=== PATIENT | male | born 1980 | race Caucasian/White ===

== ENCOUNTER 2020-02-08 12:02 | Day surgery (SDC) | payer BC ==
[~2020-02-08] VITALS: Ht 172.7 cm; Wt 104.5 kg
[2020-02-08] VITALS (7 sets, daily range): BP systolic 126–135; BP diastolic 61–94
[2020-02-08] MEDS ORDERED: LORazepam 0.5 MG tablet PO PRN (12:25)
[2020-02-08] MEDS ORDERED: diphenhydrAMINE 25mg capsule PO PRN (12:25)
[2020-02-08] MEDS ORDERED: normal saline 1,000 ML IV SCH (12:25)
[2020-02-08] MEDS ORDERED: heparin 1,000unit/ml 10ml vial 10 ML ONE (12:34)
[2020-02-08] MEDS ORDERED: fentaNYL/PF 50MCG/1 ML 2ML syringe ONE (12:34)
[2020-02-08] MEDS ORDERED: midazolam 2 mg/2 ml injection ONE ×2 (12:34→12:56)
[2020-02-08] MEDS ORDERED: LIDOcaine 1% (10mg/ml)w/preservative injection 20ml MDV ONE (12:34)
[2020-02-08] MEDS ORDERED: nitroGLYCERIN-Tridil 50MG/D5W 250 ML IV ONE (12:34)
[2020-02-08] MEDS ORDERED: verapamil 2.5 mg/ml inj IV ONE (12:34)
[2020-02-08] MEDS ORDERED: heparin 1,000 UNITS/NS 500ml 500 ML ONE ×2 (12:34→12:35)
[2020-02-08] MEDS ORDERED: ALPR1TAB2 PO (12:35)
[2020-02-08] MEDS ORDERED: TADA10TA14 PO (12:35)
[2020-02-08] MEDS ORDERED: ASPI-1265 PO (12:35)
[2020-02-08] MEDS ORDERED: iohexol 350MG/ML 100ml bottle IV ONE (12:35)
[2020-02-08] MEDS ORDERED: TEST200V10 IM (12:35)
[2020-02-08] MEDS ORDERED: SERT-153 PO (12:35)
== END 2020-02-08 15:30 | disposition home or self-care (01) ==
LOC: SSTAY O 12:02
PROVIDERS: ATTEND Internal Medicine Interventional Cardiology
DX: R07.89 Other chest pain (principal); F41.9 Anxiety disorder, unspecified; G47.10 Hypersomnia, unspecified; E78.49 Other hyperlipidemia; I10 Essential (primary) hypertension; Z79.899 Other long term (current) drug therapy; Z79.82 Long term (current) use of aspirin
CPT/HCPCS: 93458; 99152; C1769; C1894; J1644; J2001; J2250; J3010; J7030; Q0163; Q9967; A4620; A5120; A6258; J3490

== ENCOUNTER 2022-12-09 14:20 | Day surgery (SDC) | payer BC ==
[~2022-12-09] VITALS: Ht 172.7 cm; Wt 100.0 kg
[2022-12-09 14:00] VITALS: BP 130/80; PULSE 70; RESP 16
[~2022-12-09 14:20] MED LIST: ALPR1TAB2 PO; ASPI-1265 PO; ONDA4TAB12 PO; SERT-153 PO; SIME125C PO; SUCR1TAB34 PO; TADA10TA14 PO; TEST200V33 IM
[2022-12-09] MEDS ORDERED: [UNRECOGNIZED DRUG - CODE] (14:43)
[2022-12-09] MEDS ORDERED: ONDA4TAB12 PO (14:55)
[2022-12-09] MEDS ORDERED: SIME125C PO (14:55)
[2022-12-09] MEDS ORDERED: SUCR1TAB34 PO (14:55)
[2022-12-09] MEDS ORDERED: MIDAZolam 1 MG/ML 5ML VIAL ONE (16:52)
[2022-12-09] MEDS ORDERED: diphenhydrAMINE 50 mg/ml inj ONE (16:52)
[2022-12-09] MEDS ORDERED: LIDOcaine Viscous 15ml cup ONE (16:52)
[2022-12-09] MEDS ORDERED: fentaNYL/PF 50MCG/1 ML 2ML syringe ONE ×2 (16:52→17:24)
[2022-12-09] MEDS ORDERED: ondansetron/PF 4mg/2ml inj ONE (17:09)
[2022-12-09 17:46] VITALS: BP 150/90; PULSE 88; RESP 16; O2SAT 97
[2022-12-09 17:56] VITALS: BP 127/87; PULSE 82; RESP 16; O2SAT 98
[2022-12-09 18:06] VITALS: BP 129/82; PULSE 74; RESP 16; O2SAT 99
[2022-12-09 18:16] VITALS: BP 114/74; PULSE 77; RESP 16; O2SAT 97
[2022-12-09 18:26] VITALS: BP 122/75; PULSE 63; RESP 16; O2SAT 98
== END 2022-12-09 18:35 | disposition home or self-care (01) ==
LOC: GI LAB 14:20
PROVIDERS: ATTEND Internal Medicine Gastroenterology
DX: R11.2 Nausea with vomiting, unspecified (principal); R10.13 Epigastric pain; K44.9 Diaphragmatic hernia without obstruction or gangrene; K29.50 Unspecified chronic gastritis without bleeding
CPT/HCPCS: 43239; 99152; J1200; J2250; J2405; J3010; J7030; Z7512; 99153

== ENCOUNTER 2024-04-24 16:52 | Emergency (ER) | payer BC ==
[~2024-04-24] VITALS: Ht 172.7 cm; Wt 104.5 kg
[~2024-04-24 16:52] MED LIST changes: -ASPI-1265 PO; +ONDA-243 PO; -ONDA4TAB12 PO; -TADA10TA14 PO; +[UNRECOGNIZED DRUG - CODE]
[2024-04-24 17:01] VITALS: BP 135/90; PULSE 87; RESP 18; TEMP 97.6; O2SAT 93
[2024-04-24 17:06] LABS: BASOPHILS % (AUTO) 0.7 % (0-1); EOSINOPHILS % (AUTO) 0.3 % (0-6); HEMOGLOBIN 16.6 g/dl (14.0-17.9); LYMPHOCYTES # (AUTO) 1.1 X10'3 (1.1-4.8); MEAN CORPUSCULAR HEMOGLOBIN 33.6 PG (27.0-31.0); MEAN CORPUSCULAR HGB CONC 34.7 g/dL (33.0-36.5); MEAN CORPUSCULAR VOLUME 96.9 FL (78-98); MEAN PLATELET VOLUME 8.4 FL (7.4-10.4); MONOCYTES # (AUTO) 0.6 X10'3 (0-0.9); MONOCYTES % (AUTO) 9.7 % (2-12); NEUTROPHILS # (AUTO) 4.4 X10'3 (1.8-7.7); NEUTROPHILS % (AUTO) 71.3 % (42-75); PLATELET COUNT 170 X10'3 (140-440); RED BLOOD COUNT 4.96 X10'6 (4.70-6.10); RED CELL DISTRIBUTION WIDTH 14.2 % (11.5-14.5); WHITE BLOOD COUNT 6.2 X10'3 (4.5-11.0)
[2024-04-24 17:26] LABS: ALANINE AMINOTRANSFERASE 57 U/L (12-78); ALBUMIN 4.5 G/DL (3.4-5.0); ALBUMIN/GLOBULIN RATIO 1.2 (1.1-1.5); ALKALINE PHOSPHATASE 63 IU/L (46-116); ANION GAP 11 (8-16); ASPARTATE AMINO TRANSFERASE 37 U/L (10-37); BILIRUBIN,TOTAL 0.5 MG/DL (0.1-1.0); BLOOD UREA NITROGEN 9 MG/DL (7-18); BUN/CREATININE RATIO 9.4 (10.0-20.0); CALCIUM 9.3 MG/DL (8.5-10.1); CHLORIDE 101 MMOL/L (99-107); CREATININE 0.96 MG/DL (0.60-1.10); GLUCOSE 109 MG/DL (70-104); SODIUM 138 MMOL/L (135-145); TOTAL CARBON DIOXIDE 25.6 MMOL/L (24-32); TOTAL PROTEIN 8.2 G/DL (6.4-8.2); eCRCL 93 ML/MIN; eGFR 84 ML/MIN
[2024-04-24 17:46] LABS: PRO BRAIN NATRIURETIC PEPTIDE < 30 PG/ML (0-125)
== END 2024-04-24 19:17 | disposition home or self-care (01) ==
LOC: ER 16:53
DX: R07.89 Other chest pain (principal); Z79.899 Other long term (current) drug therapy
CPT/HCPCS: 36415; 71045; 80053; 83880; 84484; 85025; 93005; 99285

== ENCOUNTER 2024-05-06 12:10 | Emergency (ER) | payer BC ==
[~2024-05-06] VITALS: Ht 172.7 cm; Wt 105.8 kg
[2024-05-06 12:31] VITALS: TEMP 98
[2024-05-06 13:22] LABS: BASOPHILS % (AUTO) 0.4 % (0-1); EOSINOPHILS % (AUTO) 0.6 % (0-6); HEMATOCRIT 47.1 % (42.0-52.0); HEMOGLOBIN 16.2 g/dl (14.0-17.9); LYMPHOCYTES # (AUTO) 0.7 X10'3 (1.1-4.8); LYMPHOCYTES % (AUTO) 13.6 % (21-51); MEAN CORPUSCULAR HEMOGLOBIN 33.6 PG (27.0-31.0); MEAN CORPUSCULAR HGB CONC 34.3 g/dL (33.0-36.5); MEAN PLATELET VOLUME 8.5 FL (7.4-10.4); MONOCYTES # (AUTO) 0.5 X10'3 (0-0.9); MONOCYTES % (AUTO) 9.3 % (2-12); NEUTROPHILS % (AUTO) 76.1 % (42-75); PLATELET COUNT 178 X10'3 (140-440); RED BLOOD COUNT 4.81 X10'6 (4.70-6.10); RED CELL DISTRIBUTION WIDTH 13.8 % (11.5-14.5); WHITE BLOOD COUNT 5.3 X10'3 (4.5-11.0)
[2024-05-06 13:34] LABS: ALANINE AMINOTRANSFERASE 44 U/L (12-78); ALBUMIN 3.9 G/DL (3.4-5.0); ALBUMIN/GLOBULIN RATIO 1.1 (1.1-1.5); ALKALINE PHOSPHATASE 52 IU/L (46-116); ANION GAP 8 (8-16); ASPARTATE AMINO TRANSFERASE 26 U/L (10-37); BILIRUBIN,TOTAL 0.4 MG/DL (0.1-1.0); BLOOD UREA NITROGEN 12 MG/DL (7-18); BUN/CREATININE RATIO 14.6 (10.0-20.0); CALCIUM 8.9 MG/DL (8.5-10.1); CHLORIDE 104 MMOL/L (99-107); CREATININE 0.82 MG/DL (0.60-1.10); GLUCOSE 108 MG/DL (70-104); POTASSIUM 4.2 MMOL/L (3.5-5.1); SODIUM 137 MMOL/L (135-145); TOTAL CARBON DIOXIDE 25.3 MMOL/L (24-32); TOTAL PROTEIN 7.3 G/DL (6.4-8.2); eCRCL 109 ML/MIN; eGFR > 90 ML/MIN
[2024-05-06 13:49] VITALS: BP 138/85; PULSE 76; O2SAT 94
[2024-05-06 13:50] LABS: BILIRUBIN,URINE NEGATIVE (Neg); CLARITY,URINE CLEAR (Clear); COLOR,URINE YELLOW (Yellow); GLUCOSE, URINE NEGATIVE (Neg); KETONES,URINE NEGATIVE (Neg); LEUKOCYTE ESTERASE ,URINE NEGATIVE (Neg); NITRITES, URINE NEGATIVE (Neg); OCCULT BLOOD,URINE NEGATIVE (Neg); PROTEIN,URINE NEGATIVE (Neg); UROBILINOGEN,URINE 0.2 E.U/dL (0.2-1.0)
[2024-05-06 13:54] LABS: UA COLLECTION TYPE NON-SPECIFIED
[2024-05-06 14:46] VITALS: RESP 18
[2024-05-06] MEDS: ketorolac trometh 15mg/ml vial 15 MG/ML ML IV ONE (14:46)
== END 2024-05-06 14:53 | disposition home or self-care (01) ==
LOC: ER 12:11
DX: M54.9 Dorsalgia, unspecified (principal); R10.9 Unspecified abdominal pain
CPT/HCPCS: 36415; 74176; 80053; 81003; 84145; 85025; 96374; 99285; J1885